=== PATIENT | female | born 1990 | race Caucasian/White ===

== ENCOUNTER 2018-12-23 06:00 | Inpatient (IN) | payer OTHER ==
[~2018-12-23] VITALS: Ht 170.2 cm; Wt 125.3 kg
[2018-12-23] MEDS: LACTATED RINGER'S 1,000 ML IV SCH ×4 (06:57→22:05)
[2018-12-23] MEDS ORDERED: LIDOCAINE 1% (MPF) 30 ML INJ INJ PRN (07:00)
[2018-12-23] MEDS ORDERED: BUTORPHANOL 2 MG INJ IV PRN (07:00)
[2018-12-23] MEDS ORDERED: CARBOPROST 250 MCG INJ IM PRN (07:00)
[2018-12-23] MEDS ORDERED: MISOPROSTOL 200 MCG TAB PR PRN (07:00)
[2018-12-23] MEDS ORDERED: OXYTOCIN 30 UNITS/LR 500 ML IV SCH ×3 (07:00→14:30)
[2018-12-23] MEDS ORDERED: OXYTOCIN 30 UNITS/LR 500 ML IV PRN (07:00)
[2018-12-23] MEDS ORDERED: IBUPROFEN 600 MG TAB PO PRN (07:00)
[2018-12-23] MEDS ORDERED: METHYLERGONOVINE 0.2 MG INJ IM PRN (07:00)
[2018-12-23 07:20] VITALS: Ht 170.2 cm; Wt 125.3 kg
[2018-12-23] MEDS ORDERED: MISOPROSTOL 50 MCG CAPSULE PO SCH ×2 (10:00→13:00)
--- NOTE | 2018-12-23 17:44 | PREAC ---
Date/Time of Note Date/Time of Note DATE: 12/23/18 TIME: 17:43 Anesthesia Eval and Record Evaluation Time Pre-Procedure Interview DATE: 12/23/18 TIME: 17:43 Age 27 Sex female NPO: 8 hrs Preoperative diagnosis iup at post dates Planned procedure labor epidural Past Medical History Past Medical History: Includes GI: Morbid obesity Surgery & Anesthesia Issues No known issue Meds Anticoagulation: No Beta Geo within 24 hr: No Reason Beta Geo not given: Pt. not on B-Geo Current Medications Lactated Ringer's 1,000 ml @ 125 mls/hr Q8H IV Last administered on 12/23/18at 14:55; Admin Dose 125 MLS/HR; Start 12/23/18 at 06:32 Butorphanol Tartrate (Stadol) 2 mg Q2H PRN IV .PAIN SCALE 6-10; Start 12/23/18 at 07:00 Lidocaine (Xylocaine 1% (Mpf)) 30 ml ONCE PRN INJ .EPISIOTOMY; Start 12/23/18 at 07:00 Oxytocin/Lactated Ringer's 500 ml @ 500 mls/hr ONCE POST IV ; Start 12/23/18 at 07:00 Oxytocin/Lactated Ringer's 500 ml @ 125 mls/hr POST IV ; Start 12/23/18 at 07:00 Ibuprofen (Motrin) 600 mg ONCE PRN PO .PAIN 1-5; Start 12/23/18 at 07:00 Oxytocin/Lactated Ringer's 500 ml @ 0 mls/hr ONCE PRN IV .VAGINAL BLEEDING; Start 12/23/18 at 07:00 Methylergonovine Maleate (Methergine) 0.2 mg ONCE PRN IM .VAGINAL BLEEDING; Start 12/23/18 at 07:00 Carboprost Tromethamine (Hemabate) 250 mcg ONCE PRN IM .VAGINAL BLEEDING; Start 12/23/18 at 07:00 Misoprostol (Cytotec) 1,000 mcg ONCE PRN [place] .VAGINAL BLEEDING; Start 12/23/18 at 07:00 Misoprostol (Cytotec 50 Mcg Capsule) 50 mcg Q4 PO Last administered on 9at 10:07; Admin Dose 50 MCG; Start 12/23/18 at 10:00 Oxytocin/Lactated Ringer's 500 ml @ 0 mls/hr Q0M IV Last administered on 12/23/18at 16:39; Admin Dose 1 MLS/HR; Start 12/23/18 at 14:30 Meds reviewed: Yes Allergies Coded Allergies: No Known Allergy (Unverified , 12/23/18) Allergies Reviewed: Yes Labs/Studies Labs Reviewed: Reviewed by anesthesiologist Result Diagram: 12/23/18 0650 12/23/18 0650 Laboratory Tests 12/23/18 06:50 Blood Bank Test 12/23/18 06:50 Antibody Screen NEGATIVE Blood Type A POSITIVE Rh Immune Globulin Candidate NO test: Positive Pre-procedure Exam Airway: Adequate mouth opening, Adequate thyromental dist Mallampati: Mallampati II Teeth: Normal Lung: Normal Heart: Normal ASA Physical Status ASA physical status: 2 Emergency: None Planned Anesthetic Neuraxial: Epidural Planned Pain Management Parenteral pain med Pre-operative Attestations Prior to commencing anesthesia and surgery, the patient was re-evaluated, there was verification of: *The patient's identity *The results of appropriate recent lab work and preoperative vital signs *The above evaluation not changing prior to induction *Anesthetic plan, risk benefits, alternative and complications discussed with patient/family; questions answered; patient/family understands, accepts and wishes to proceed. MT CAO Dec 23, 2018 17:44
[2018-12-23] MEDS ORDERED: FENTAnyl 2MCG/ML-ROPIV 0.2% 100 ML ONE (17:46)
--- NOTE | 2018-12-23 19:09 | PAC ---
Date/Time of Note Date/Time of Note DATE: 12/23/18 TIME: 19:08 Post-Anesthesia Notes Post-Anesthesia Note Last documented vital signs 117/56 78 98.2 temp Activity: WNL Respiratory function: WNL Cardiovascular function: WNL Mental status: Baseline Pain reasonably controlled: Yes Hydration appropriate: Yes Nausea/Vomiting absent: Yes MT CAO Dec 23, 2018 19:09
[2018-12-23] MEDS ORDERED: DIPHENHYDRAMINE 50 MG INJ IV PRN (19:30)
[2018-12-23] MEDS ORDERED: FENTAnyl 2MCG/ML-ROPIV 0.2% 100 ML BAG EPI SCH (19:30)
[2018-12-23] MEDS ORDERED: NALOXONE (0.4 MG/ML) INJ IV PRN (19:30)
[2018-12-23] MEDS ORDERED: ONDANSETRON 4 MG INJ IV PRN (19:30)
[2018-12-23] MEDS ORDERED: SODIUM CHLORIDE 0.9% 1L IRRIG IRR SCH (22:30)
[2018-12-24] MEDS ORDERED: OXYTOCIN 30 UNITS/LR 500 ML IV SCH (00:54)
[2018-12-24] MEDS ORDERED: LACTATED RINGER'S 500 ML IV SCH (00:54)
[2018-12-24] MEDS: SENNA/DOCUSATE NA (8.6MG/50MG) TAB PO SCH ×3 (01:00→20:20)
[2018-12-24] MEDS: IBUPROFEN 600 MG TAB PO SCH ×4 (01:00→18:11)
[2018-12-24] MEDS ORDERED: HYDROCODONE/APAP (5/325) TAB PO PRN (01:00)
[2018-12-24] MEDS ORDERED: METHYLERGONOVINE 0.2 MG INJ IM PRN (01:00)
[2018-12-24] MEDS ORDERED: CARBOPROST 250 MCG INJ IM PRN (01:00)
[2018-12-24] MEDS ORDERED: ZOLPIDEM 5 MG TAB PO PRN (01:00)
[2018-12-24] MEDS ORDERED: ONDANSETRON 4 MG INJ IV PRN (01:00)
[2018-12-24] MEDS ORDERED: OXYTOCIN 30 UNITS/LR 500 ML IV PRN (01:00)
[2018-12-24] MEDS ORDERED: METHYLERGONOVINE 0.2 MG TAB PO PRN (01:00)
[2018-12-24] MEDS ORDERED: MISOPROSTOL 200 MCG TAB PR PRN (01:00)
[2018-12-24] MEDS ORDERED: DIPHENHYDRAMINE 25 MG CAP PO PRN (01:00)
[2018-12-24] MEDS ORDERED: NACL 0.9% 3 ML SYG IV SCH (01:00)
[2018-12-24] MEDS ORDERED: WITCH HAZEL/GLYCERIN PAD PR PRN (01:00)
--- NOTE | 2018-12-24 01:05 | LDN ---
Date/Time of Note Date/Time of Note DATE: 12/24/18 TIME: 01:01 Delivery Summary 12/24/2018 Episiotomy: No Indication for episiotomy N/A Perineal laceration: 1 Laceration repair: Perineal laceration in suburethra area noted about 0.5 cm , no extention to the urethra noted, Urethra cathaterized and clear urine noted. Area repaired using 3-0 chromic. Hemostasis complete. Anesthesia type: Epidural Estimated blood loss: 200 Sponge & Needle done & correct: Yes All needle counts correct: Yes Any foreign bodies felt in the: No Infant Delivery Information Sex Sex: male Apgars 1 Minute: 8 5 Minute: 9 Suctioning Nose & mouth suctioned at caitie: Yes Delee suction performed: Yes Umbilical Cord Umbilical cord with: 3 Vessels Cord presentations: no nuchal cord Cord Blood was obtained: Yes Mother & Baby Disposition Disposition Cord was very shot. Mom & Baby to Maternity; Good: Yes Baby to NICU: No VALENTÍN DAVIDSON MD Dec 24, 2018 01:05
[2018-12-24 01:50] VITALS: BP 120/64; PULSE 112; RESP 19
[2018-12-24] MEDS: LANOLIN HPA 1 PKT TOP PRN ×2 (02:30→20:20)
--- NOTE | 2018-12-24 03:32 | PREOPHP ---
DATE OF ADMISSION: 12/23/2018 HISTORY OF PRESENT ILLNESS: This is a 27-year-old lady, 4, para 2, EDC 12/23/2018 at 40 week s , admitted to labor and delivery area in early labor. She had care and my [place] office and the care was uneventful. PAST PERSONAL HISTORY: No history of diabetes, TB, asthma. ALLERGIES: NO ALLERGIES. SOCIAL HISTORY: The patient does not smoke. She does not drink. MEDICATIONS: She does not take any drugs except for iron and vitamins. GYNECOLOGIC HISTORY: She had menarche at the age of 14, every 28 days interval, 3 to 4 days duration , and moderate in amount. FAMILY HISTORY: Mother has hypertension. OBSTETRICAL HISTORY: She is 4, para 2. Her first delivery was in 2010, second in 2014, all normal deliveries. The largest baby weighed 7.5 pounds. REVIEW OF SYSTEMS: CARDIOVASCULAR: No chest pains. RESPIRATORY: No cough. GASTROINTESTINAL: No diarrhea, no vomiting. GENITOURINARY: No dysuria. PHYSICAL EXAMINATION: GENERAL: Reveals a conscious, coherent lady and in no acute distress. VITAL SIGNS: Blood pressure 120/80, pulse rate 80 per minute, respirations 16 per minute. BREASTS, HEART AND LUNGS: Within normal limits. ABDOMEN: Soft and obese. Fundic height 38 cm. heart tones 140 per minute. PELVIC: Done by me revealed the cervix to be 2 cm dilated and 80% effaced, station 0 in cephalic pre sentation with the bag of water intact. EXTREMITIES: No pedal edema. ADMITTING DIAGNOSIS: A 40 weeks intrauterine in early labor. The estimated weight b y ultrasound is 3656, like 8 pounds. PLAN: The plans of delivery were explained to the patient as to go for vaginal delivery. The risks, benefits, and alternatives to vaginal delivery and was explained to the patient. Risks of explained. The risks of shoulder dystocia was explained to her as well with the nurse, Connor saini, present at bedside when I explained to the patient. She wanted to go for vaginal delivery, so according to the nurseLis, it is very difficult to evaluate the contractions and heart rate because of the fatty abdomen. So she had artificial rupture of membranes. scalp electrodes a nd IPC were inserted done by me. Clear fluid was noted. She received 2 doses of Cytotec. Then the nurse, Lis, was advised to restart on Pitocin augmentation when ready after the last Cytotec. The patient progressed well and then when I came around 9:47 p.m. on 12/23, I reevaluated the patient. S he is 4 cm, 100% effaced and station 0. Tracing was reviewed and there were some variable decelerati on and a few of them were late. The patient was ordered to have amnio infusion and then at 2147 a fe w minutes after I checked the patient, the patient had a prolonged decel for 4 minutes and then oxyge n and change of position was done. She had another one at 2151, and this last for a variable decel a s well that lasted for 3 minutes. I came, I changed the position of the patient from left to the rig ht and the baby had recovered. The patient was also hydrated. The plans were explained to the patie nt and she understood everything totally. After at least 30 minutes that the baby had recovered, I e ndorsed the patient to Dr. Duarte who is the laborist cash applications representative at the hospital and the history was gi sujey to her and the tracing was reviewed with her. She is going to take over the care of this patient . The patient was informed about the plan and the patient is aware of it and is agreeable. Dictated By: CLINT MELO/RICKY Conf#: [id number] DID#: [id number]
[2018-12-24 08:00] VITALS: BP 120/76; PULSE 107; RESP 18
[2018-12-24 12:00] VITALS: BP 119/83; PULSE 100; RESP 16
[2018-12-24 16:00] VITALS: BP 125/83; PULSE 102; RESP 18
[2018-12-24 20:00] VITALS: BP 119/68; PULSE 106; RESP 18
[2018-12-25] MEDS: IBUPROFEN 600 MG TAB PO SCH ×4 (03:16→17:20)
[2018-12-25 04:39] VITALS: BP 109/70; PULSE 86; RESP 18
[2018-12-25 08:30] VITALS: BP 128/70; PULSE 87; RESP 20
[2018-12-25] MEDS: SENNA/DOCUSATE NA (8.6MG/50MG) TAB PO SCH (08:57)
--- NOTE | 2018-12-25 14:46 | PN ---
Date/Time of Note Date/Time of Note DATE: 12/25/18 TIME: 14:44 Assessment/Plan VTE Prophylaxis Risk score (from Ns)>0 risk: 1 SCD applied (from Ns): No SCD contraindicated: low risk/ambulating Pharmacological prophylaxis: NA/contraindicated Pharm contraindication: low risk/ambulating Lines/Catheters IV [facility] Sal[place] Assessment/Plan Assessment/Plan POST DAY 1 HOME TODAY RETURN TO CLINIC IN 2 WEEKS CONTINUE WITH VITAMINS OD AND FERROUS SULFATE PO TID DIET ADVISED COUNSELED INSTRUCTED CALL OFFICE IF THERE IS ANY PROBLEMS OR CONCERN Result Diagram: 12/25/18 0749 12/23/18 0650 Results 24hrs Laboratory Tests Test 12/25/18 07:49 White Blood Count 9.2 Red Blood Count 4.34 Hemoglobin 12.8 Hematocrit 39.0 Mean Corpuscular Volume 89.9 Mean Corpuscular Hemoglobin 29.5 Mean Corpuscular Hemoglobin Concent 32.8 Red Cell Distribution Width 13.2 Platelet Count 189 Mean Platelet Volume 10.5 H Immature Granulocytes % 0.300 Neutrophils % 72.6 Lymphocytes % 17.9 Monocytes % 8.4 Eosinophils % 0.7 Basophils % 0.1 Nucleated Red Blood Cells % 0.0 Immature Granulocytes # 0.030 Neutrophils # 6.7 Lymphocytes # 1.7 Monocytes # 0.8 Eosinophils # 0.1 Basophils # 0.0 Nucleated Red Blood Cells # 0.0 Subjective 24 Hr Interval Summary Free Text/Dictation FEELS GOOD, GOOD URINE OUTPUT, GOOD BOWEL MOVEMENT WANTS TO GO HOME TODAY Exam/Review of Systems Exam Vitals Vital Signs Date Temp Pulse Resp B/P (MAP) Pulse Ox O2 O2 Flow FiO2 Time Delivery Rate 12/25/18 98.3 87 20 128/70 Room Air 08:30 (89) Intake and Output 12/24/18 12/24/18 12/25/18 1515:00 23:00 07:00 IntakeIntake Total 500 ml BalanceBalance 500 ml Exam VITAL SIGNS STABLE: YES AFEBRILE: YES BREAST NOT ENGORGED, NON-TENDER, NO APPRECIABLE MASS: YES LUNGS CLEAR, NO RALES, WHEEZES, RHONCHI: YES SINUS RHYTHM WITHOUT MURMUR: YES ABDOMEN: NON-TENDER FUNDUS: BELOW UMBILICUS BOWEL SOUNDS: PRESENT UTERUS: FIRM PERINEAL TEAR HEALING WELL LOCH[place]: LIGHT DEEP TENDON REFLEXES: 0 EXTREMITIES: NO CALF TENDERNESS EDEMA SCALE: NONE Results Results 24hrs Laboratory Tests Test 12/25/18 07:49 White Blood Count 9.2 Red Blood Count 4.34 Hemoglobin 12.8 Hematocrit 39.0 Mean Corpuscular Volume 89.9 Mean Corpuscular Hemoglobin 29.5 Mean Corpuscular Hemoglobin Concent 32.8 Red Cell Distribution Width 13.2 Platelet Count 189 Mean Platelet Volume 10.5 H Immature Granulocytes % 0.300 Neutrophils % 72.6 Lymphocytes % 17.9 Monocytes % 8.4 Eosinophils % 0.7 Basophils % 0.1 Nucleated Red Blood Cells % 0.0 Immature Granulocytes # 0.030 Neutrophils # 6.7 Lymphocytes # 1.7 Monocytes # 0.8 Eosinophils # 0.1 Basophils # 0.0 Nucleated Red Blood Cells # 0.0 Medications Medication Current Medications Lactated Ringer's 500 ml @ 0 mls/hr Q0M IV ; Start 12/24/18 at 00:54 IV Flush (NS 3 ml) 3 ml PER PROTOCOL IV ; Start 12/24/18 at 01:00 Methylergonovine Maleate (Methergine) 0.2 mg Q6H PRN PO .VAGINAL BLEED; Start 12/24/18 at 01:00 Ibuprofen (Motrin) 600 mg Q6 PO Last administered on 12/25/18at 11:50; Admin Dose 600 MG; Start 12/24/18 at 01:00 Acetaminophen/ Hydrocodone Bitart ([place] (5/325)) 2 tab Q4H PRN PO .PAIN 6-10 Last administered on 12/24/18at 02:28; Admin Dose 2 TAB; Start 12/24/18 at 01:00 Ondansetron HCl (Zofran Inj) 4 mg Q6H PRN IV NAUSEA/VOMITING; Start 12/24/18 at 01:00 Diphenhydramine HCl (Benadryl) 25 mg Q6H PRN PO .PRUTITUS; Start 12/24/18 at 01:00 Zolpidem Tartrate (Ambien) 5 mg QHS PRN PO .INSOMNIA; Start 12/24/18 at 01:00 Senna/Docusate Sodium (Senokot-S) 1 tab BID PO Last administered on 12/24/18at 20:20; Admin Dose 1 TAB; Start 12/24/18 at 01:00 Witch Cyndie/ Glycerin (Tucks Pads) 1 pad BEDSIDE MEDICATION PRN [place] .HEMORRHOID/ EPISIOTOMY PAIN Last administered on 12/24/18at 01:53; Admin Dose 1 PAD; Start 12/24/18 at 01:00 Lanolin (Lanolin Hpa) 1 applic BEDSIDE MEDICATION PRN TOP .NIPPLES Last administered on 12/24/18at 20:20; Admin Dose 1 APPLIC; Start 12/24/18 at 01:00 Measles/Mumps/ Rubella Vaccine Live (Mmr Ii Vaccine) 0.5 ml ONCE ONCE SC* ; Start 12/26/18 at 09:00; Stop 12/26/18 at 09:01 Diphtheria/ Tetanus/Acell Pertussis (Adacel) 0.5 ml ONCE ONCE IM* ; Start 12/26/18 at 09:00; Stop 12/26/18 at 09:01 Varicella Virus Vaccine Live (Varivax Vaccine With Diluent) 1,350 unit ONCE ONCE SC* ; Start 12/26/18 at 09:00; Stop 12/26/18 at 09:01 Oxytocin/Lactated Ringer's 500 ml @ 0 mls/hr ONCE PRN IV .VAGINAL BLEEDING; S tart 12/24/18 at 01:00 Methylergonovine Maleate (Methergine) 0.2 mg ONCE PRN IM .VAGINAL BLEEDING; S tart 12/24/18 at 01:00 Carboprost Tromethamine (Hemabate) 250 mcg ONCE PRN IM .VAGINAL BLEEDING; Start 12/24/18 at 01:00 Misoprostol (Cytotec) 1,000 mcg ONCE PRN [place] .VAGINAL BLEEDING; Start 12/24/18 at 01:00 CLINT OBRIEN MD Dec 25, 2018 14:45
[2018-12-25] MEDS ORDERED: PETROLATUM 5 GM OINT TOP ONE (15:00)
[2018-12-25 15:55] VITALS: BP 122/76; PULSE 72; RESP 18
[2018-12-26] MEDS ORDERED: DIPHTH/TET/ACEL PERTUSS (ADULT) 0.5 ML VIAL IM* ONE (09:00)
[2018-12-26] MEDS ORDERED: VARICELLA VACCINE LIVE/PF 1,350 UNIT/0.5 ML ML SC* ONE (09:00)
[2018-12-26] MEDS ORDERED: MEASLES,MUMPS,RUBELLA VACCINE INJ SC* ONE (09:00)
--- NOTE | 2018-12-26 19:39 | DELSUM ---
Delivery Summary A-C Datetime Report Generated by CPN: 12/26/2018 19:39 DELIVERY PERSONNEL Building Drafting Officer: ISABELLA, DEVEN MATERNAL INFORMATION Delivery Anesthesia: Epidural Medications in Delivery: LR W/30 UNITS PITOCIN Delivery QBL (ml): 200 Placenta Cultured: No Maternal Complications: None LABOR SUMMARY EDC: 12/23/2018 00:00 No. Babies in Womb: 1 Attempted: No Labor Anesthesia: Epidural LABOR INFORMATION Reason for Induction: Other Reason for Induction- Other: LIE Onset of Labor: 12/23/2018 13:26 Complete Dilatation: 12/24/2018 23:42 Cervical Ripening Agents: Cytotec @ 50 mcq po. Group B Beta Strep: Negative Antibiotics # of Doses: 0 Steroids Given: None Reason Steroids Not Administered: Not Applicable MEMBRANES Membranes Rupture Method: Artificial Rupture of Membranes: 12/23/2018 13:25 Length of Rupture (hr): 10.67 Amniotic Fluid Color: Clear Amniotic Fluid Amount: Small Amniotic Fluid Odor: None STAGES OF LABOR Stage 1 hr: 34 Stage 1 min: 16 Stage 2 hr: -23 Stage 2 min: -37 Stage 3 hr: 0 Stage 3 min: 7 Total Time in Labor hr: 10 Total Time in Labor min: 46 VAGINAL DELIVERY Episiotomy: None Laceration Extension: First Degree Other Laceration: SUBURETHERAL Laceration Repair: Yes Initial Vag Sponge Count: 10 Final Vag Sponge Count: 10 Initial Vag Sharps Count: 1 Final Vag Sharps Count: 2 Sponge Count Correct: Yes; Vaginal Sweep Performed Sharps Count Correct: Yes BABY A INFORMATION Infant Delivery Date/Time: 12/24/2018 00:05 Method of Delivery: Vaginal Born in Route : No : N/A Forceps: N/A Vacuum Extraction: N/A Shoulder Dystocia : N/A SHOULDER DYSTOCIA BABY A Infant Delivery Date/Time: 12/24/2018 00:05 PRESENTATION/POSITION BABY A Presentation: Cephalic Cephalic Presentation: Vertex Breech Presentation: N/A PLACENTA INFORMATION BABY A Placenta Delivery Time : 12/24/2018 00:12 Placenta Method of Delivery: Spontaneous Placenta Status: Delivered SCORES BABY A Heart Rate 1 min: >100 bpm Resp Effort 1 min: Good Cry Reflex Irritability 1 min: Cough/Sneeze/Pulls Away Muscle Tone 1 min: Active Motion Color 1 min: Blue/Pale Resuscitation Effort 1 min: Tactile Stimulation SCORE 1 MIN: 8 Heart Rate 5 min: >100 bpm Resp Effort 5 min: Good Cry Reflex Irritability 5 min: Cough/Sneeze/Pulls Away Muscle Tone 5 min: Active Motion Color 5 min: Body [place], Extremit Blue Resuscitation Effort 5 min: Tactile Stimulation SCORE 5 MIN: 9 INFORMATION BABY A Gestational Age at Delivery: 40.1 Gestational Status: Full Term- 39- 40.6 Weeks Outcome : Liveborn, with signs of life Infant Condition : Stable Infant Sex: Male IDENTIFICATION/MEDS BABY A ID Band Number: [id number] ID Band Location: Right Leg; Left Arm Sensor Applied: Yes Sensor Number: [id number] Sensor Location : Cord Clamp Vitamin K Given : Not Given Erythromycin Given: Not Given WEIGHT/LENGTH BABY A Infant Birthweight (gm): 3585 Infant Weight (lb): 7 Weight (oz): 14 Length (in): 19.75 Length (cm): 50.17 CORD INFORMATION BABY A No. Cord Vessels: 3 Nuchal Cord : N/A Infant Suction: Mouth; Nose ASSESSMENT BABY A Infant Complications: Multiple Variable Decels Physical Findings at Delivery: Within Normal Limits Respirations: Appears Normal French Translator/ALS Called : Yes Care By: RT Transferred To: Remains with Mother
== END 2018-12-25 19:30 | disposition home or self-care (01) | DRG 807 ==
LOC: L-D 06:15 → PP1 12-24 01:51
PROVIDERS: ADMIT Obstetrics & Gynecology; ATTEND Obstetrics & Gynecology
PROC: 10E0XZZ Delivery of Products of Conception, External Approach (ICD-10-PCS; principal; 2018-12-24)
PROC: 0UQMXZZ Repair Vulva, External Approach (ICD-10-PCS; 2018-12-24)
DX: O99.214 Obesity complicating childbirth (principal); Z37.0 Single live birth; O71.82 Other specified trauma to perineum and vulva; Z3A.40 40 weeks gestation of pregnancy; E66.01 Morbid (severe) obesity due to excess calories; O48.0 Post-term pregnancy
CPT/HCPCS: 62322; 76815; 76818; 80053; 83789; 85014; 85018; 85025; 85610; 85730; 86592; 86850; 86900; 86901; 99464; J2590; J3010; J7120